=== PATIENT | female | born 1965 | race Caucasian/White ===

== ENCOUNTER → 2016-11-12 | Outpatient (CLI) | payer MEDICARE, OTHER ==
[~2016-11-12] MED LIST: ASPIR 8181 MG PO; CETIRIZINE HCL10 MG PO; COLACE 100MG C100 MG PO; CRESTOR40 MG PO; CYMBALTA60 MG PO; DULOXETINE HCL60 MG PO; ELAVIL 50 MG TA50 MG PO; ESTER-C 1,0001 EACH PO; FENOFIBRATE145 MG PO; FERROUS SULFAT325 M2 PO; FISH OIL 1,0001 EACH PO; FLONASE 0.05% N16 GM; GLUCOPHAGE1000 MG PO; HUMALOG100 UNIT/1 SQ; LANTUS100 UNIT/1 SQ; LASIX20 MG PO; LEVAQUIN500 MG PO; LOPRESSOR 25 MG25 MG PO; LORTAB 10-3251 EACH PO; LOSARTAN POTASS50 MG PO; METFORMIN HCL1000 M1 PO; MONTELUKAST SOD10 MG PO; MULTAQ 400 MG400 MG PO; MULTIVITAMINS1 EAC1 PO; NITROSTAT0.4 MG SL; NORCO 5-325 TA1 EACH PO; NOVOLOG 10100 UNITS1 SQ; PROTONIX 40 MG40 M1 PO; SUPER B COMPLE150 MG PO; TOPAMAX100 MG PO; TOPROL XL 25 MG25 MG PO; TRULICITY0.75 MG/0. SQ; TYLENOL WITH C1 EACH PO; XARELTO20 MG PO
[2016-11-12 10:53] LABS: HEMOGLOBIN 9.4 gm/dl (12.3-15.3); RED BLOOD COUNT 5.17 M/UL (4.00-5.10); WHITE BLOOD COUNT 8.8 K/UL (4.5-11.0)
[2016-11-12 11:04] LABS: BUN/CREATININE RATIO 20 (0-10)
== END ==
LOC: OPSV2 09:52
PROVIDERS: Obstetrics & Gynecology
DX: Z01.812 Encounter for preprocedural laboratory examination (principal); N85.01 Benign endometrial hyperplasia; Z88.0 Allergy status to penicillin; Z79.84 Long term (current) use of oral hypoglycemic drugs; Z79.4 Long term (current) use of insulin
CPT/HCPCS: 36415; 80048; 81001; 85025

== ENCOUNTER → 2016-11-21 | Day surgery (SDC) | payer MEDICARE, OTHER ==
[~2016-11-21] VITALS: Ht 170.2 cm; Wt 88.9 kg
== END | disposition home or self-care (01) ==
LOC: OR 06:33
PROVIDERS: Obstetrics & Gynecology
PROC: 0UBC8ZZ Excision of Cervix, Via Natural or Artificial Opening Endoscopic (ICD-10-PCS; principal; 2016-11-21 08:00)
DX: N84.1 Polyp of cervix uteri (principal); I10 Essential (primary) hypertension; E78.5 Hyperlipidemia, unspecified; J30.9 Allergic rhinitis, unspecified; K21.9 Gastro-esophageal reflux disease without esophagitis; G43.909 Migraine, unspecified, not intractable, without status migrainosus; I25.10 Atherosclerotic heart disease of native coronary artery without angina pectoris; I48.91 Unspecified atrial fibrillation; E05.00 Thyrotoxicosis with diffuse goiter without thyrotoxic crisis or storm; E11.9 Type 2 diabetes mellitus without complications; G47.00 Insomnia, unspecified; J06.9 Acute upper respiratory infection, unspecified; M79.7 Fibromyalgia; F17.210 Nicotine dependence, cigarettes, uncomplicated; Z88.0 Allergy status to penicillin; Z86.2 Personal history of diseases of the blood and blood-forming organs and certain disorders involving the immune mechanism; Z82.49 Family history of ischemic heart disease and other diseases of the circulatory system; Z79.82 Long term (current) use of aspirin; Z79.4 Long term (current) use of insulin; Z79.899 Other long term (current) drug therapy; Z95.0 Presence of cardiac pacemaker; Z95.1 Presence of aortocoronary bypass graft; Z90.89 Acquired absence of other organs; M19.90 Unspecified osteoarthritis, unspecified site
CPT/HCPCS: 82962; 84703; J1885; J2250; J2405; J2795; J7030; J7120

== ENCOUNTER → 2021-11-22 | Outpatient (CLI) | payer MEDICARE ==
[~2021-11-22] MED LIST changes: +AUGMENTIN 875-1 EACH PO; +BACTROBAN CREAM15 GM TOP; +VIBRAMYCIN100 MG PO; +ZOFRAN4 MG PO
== END ==
LOC: US 08:27
DX: R10.9 Unspecified abdominal pain (principal); K80.20 Calculus of gallbladder without cholecystitis without obstruction
CPT/HCPCS: 76700

== ENCOUNTER → 2022-01-14 | Outpatient (CLI) | payer MEDICARE | LOC: HEART 5 13:06 | DX: I25.10 Atherosclerotic heart disease of native coronary artery without angina pectoris (principal); I48.91 Unspecified atrial fibrillation; R06.02 Shortness of breath; I08.3 Combined rheumatic disorders of mitral, aortic and tricuspid valves | CPT/HCPCS: 93306 ==

== ENCOUNTER → 2022-02-20 | Outpatient (CLI) | payer MEDICARE | LOC: KOH-I 12:43 | DX: R80.9 Proteinuria, unspecified (principal) | CPT/HCPCS: 76775 ==